=== PATIENT | male | born 1975 | race Caucasian/White ===

== ENCOUNTER 2016-04-13 22:40 | Emergency (ER) | payer BC, OTHER ==
[2016-04-13 22:56] VITALS: BP 144/70; PULSE 74; TEMP 97.2; BMI 24.3
--- NOTE | 2016-04-13 23:56 | PDOC ---
History of Present Illness - General History Source: Patient Exam Limitations: No Limitations - History of Present Illness Initial Comments: 04/14/16 00:48 The patient is a 40 year old male with a PMHx of gastric stapling (03/30/15) who presents to the ED with epigastric pain for two weeks. Patient states that the pain is intermittent, but severe. He reports lifting heavy objects. He states he has no problem moving his bowels. He denies fever, chills, nausea, vomiting, diarrhea, constipation. <Liliam Del Toro - Last Filed: 04/14/16 00:48> <Shirley Bright - Last Filed: 04/14/16 22:13> - General Chief Complaint: Pain Stated Complaint: STOMACH PAIN Time Seen by Provider: 04/13/16 23:08 Past History <Liliam Del Toro - Last Filed: 04/14/16 00:48> - Surgical History Gastric Stapling: Yes (sleeve 03/30/14) - Psycho/Social/Smoking Cessation Hx Anxiety: No Suicidal Ideation: No Smoking History: Never smoked Have you smoked in the past 12 months: No Information on smoking cessation initiated: No Hx Alcohol Use: No Drug/Substance Use Hx: No Substance Use Type: None <Shirley Bright - Last Filed: 04/14/16 22:13> - Past Medical History Allergies/Adverse Reactions: Allergies Allergy/AdvReac Type Severity Reaction Status Date / Time No Known Allergies Allergy Verified 04/13/16 22:56 Home Medications: Ambulatory Orders Acetaminophen [Tylenol] 650 mg PO PRN 04/14/16 Polyethylene Glycol 3350 [Miralax (For Bowel Prep) -] 17 gm PO DAILY #1 bottle 04/14/16 Review of Systems - Review of Systems Able to Perform ROS?: Yes Comments:: 04/14/16 00:48 GENERAL/CONSTITUTIONAL: No fever or chills. No weakness. HEAD, EYES, EARS, NOSE AND THROAT: No change in vision. No ear pain or discharge. No sore throat. CARDIOVASCULAR: No chest pain or shortness of breath. RESPIRATORY: No cough, wheezing, or hemoptysis. GASTROINTESTINAL: +epigastric pain. No nausea, vomiting, diarrhea or constipation. GENITOURINARY: No dysuria, frequency, or change in urination. MUSCULOSKELETAL: No joint or muscle swelling or pain. No neck or back pain. SKIN: No rash NEUROLOGIC: No headache, vertigo, loss of consciousness, or change in strength/ sensation. ENDOCRINE: No increased thirst. No abnormal weight change. HEMATOLOGIC/LYMPHATIC: No anemia, easy bleeding, or history of blood clots. ALLERGIC/IMMUNOLOGIC: No hives or skin allergy. <Liliam Del Toro - Last Filed: 04/14/16 00:48> *Physical Exam - Vital Signs Last Vital Signs Temp Pulse Resp BP Pulse Ox 97.2 F L 74 17 144/70 98 04/13/16 22:53 04/13/16 22:53 04/13/16 22:53 04/13/16 22:53 04/13/16 22:53 - Physical Exam Comments: 04/14/16 00:48 GENERAL: Awake, alert, and fully oriented, in no acute distress, afebrile. NECK: Normal ROM, supple, no lymphadenopathy, JVD, or masses LUNGS: Breath sounds equal, clear to auscultation bilaterally. No wheezes, and no crackles HEART: Regular rate and rhythm, normal S1 and S2, no murmurs, rubs or gallops ABDOMEN: Gassy. No flank pain. Soft, nontender, normoactive bowel sounds. No guarding, no rebound. No masses EXTREMITIES: Normal range of motion, no edema. No clubbing or cyanosis. No cords, erythema, or tenderness NEUROLOGICAL: Cranial nerves II through XII grossly intact. Normal speech, normal gait SKIN: Warm, Dry, normal turgor, no rashes or lesions noted. <Faisal Del Toroobdonn Lopez - Last Filed: 04/14/16 00:48> - Vital Signs Last Vital Signs Temp Pulse Resp BP Pulse Ox 97.2 F L 74 17 144/70 98 04/13/16 22:53 04/13/16 22:53 04/13/16 22:53 04/13/16 22:53 04/13/16 22:53 <Shirley Bright - Last Filed: 04/14/16 22:13> ED Treatment Course - Medications Given in the ED: ED Medications Discontinued Medications Generic Name Dose Route Start Last Admin Trade Name Freq PRN Reason Stop Dose Admin Al Hydroxide/Mg Hydroxide 30 ml 04/13/16 23:58 04/14/16 00:01 Mylanta Oral Suspension - PO 04/13/16 23:59 30 ml ONCE ONE Administration <Liliam Del Toro - Last Filed: 04/14/16 00:48> Medical Decision Making - Medical Decision Making 04/14/16 22:11 Pt is anxious and he comes with abdominal pain. He has a normal exam. I will not check labs. I will not get a CT scan. We compromised on a KUB/flat and uprightt. Pt has gas and constipation. Home with follow up with his surgeon at [facility] who performed a gastric sleeve months ago. <Shirley Bright - Last Filed: 04/14/16 22:13> *DC/Admit/Observation/Transfer - Attestations Scribe Attestion: 04/14/16 00:49 Documentation prepared by Liliam Del Toro, acting as medical corps officer for Shirley Bright MD. <Liliam Del Toro - Last Filed: 04/14/16 00:48> - Discharge Dispostion Admit: No <Shirley Bright - Last Filed: 04/14/16 22:13> Diagnosis at time of Disposition: Constipation, Gas pain - Discharge Dispostion Disposition: HOME Condition at time of disposition: Stable - Prescriptions Prescriptions: Polyethylene Glycol 3350 [Miralax (For Bowel Prep) -] 17 gm PO DAILY #1 bottle - Referrals Referrals: Ledy Rios MD [Primary Care Provider] - - Patient Instructions Printed Discharge Instructions: DI for Constipation, DI for Dyspepsia
[2016-04-13] MEDS ORDERED: MAG HYDROX/AL HYDROX/SIMETH 30 ML UNIT-DOSE CUP PO ONE (23:58)
[2016-04-14] MEDS ORDERED: MAG HYDROX/AL HYDROX/SIMETH 30 ML UNIT-DOSE CUP ONE
== END 2016-04-14 01:33 | disposition home or self-care (01) ==
LOC: JER 22:40 → SUPCPDRO 22:40 → JER 04-14 01:33
DX: K59.00 Constipation, unspecified (principal); R14.1 Gas pain; Z98.84 Bariatric surgery status
CPT/HCPCS: 74020-TC; 99283-25